=== PATIENT | male | born 1935 | race Caucasian/White ===

== ENCOUNTER → 2017-01-03 | Outpatient (CLI) | payer OTHER ==
--- NOTE | ~2017-01-03 | 2DMMODE ---
[facility] [address] [place] [address] 2 D/M-MODE ECHOCARDIOGRAM Name: LEANNE JOHNSON Room #: [facility]#: [id number] Admission: 01/03/17 Attend Phys: Ted Luis, Discharge: Date of : 35 Date of Service: 01/03/17 1026 Report #: [id number] THIS REPORT FOR: //name// APPROVED REPORT Study performed: 01/03/2017 09:37:51 EXAM: Comprehensive 2D, Doppler, and color-flow Echocardiogram Patient Location: Out-Patient Blood Pressure: 150/72 mmHg HR: 50 bpm Other Information Study Quality: Good Indications COPD Diabetes Hypertension/HDD 2D Dimensions RVDd: 41.11 mm LVEF(%): 55.18 (>50%) IVSd: 9.64 (7-11mm) LVOT Diam: 22.89 (18-24mm) LVDd: 56.95 mm PWd: 10.17 (7-11mm) Ascending Aorta: 33.90 mm LVDs: 40.38 (25-40mm) IVC: 22.00 mm Aortic Root: 33.46 mm Hewitt's LVEF: 55.18 % Volumes Left Atrial Volume (Systole) Single Plane 4CH: 51.42 mL Single Plane 2CH: 47.68 mL LA ESV Index: 30.00 mL/m2 Aortic Valve AoV Peak Bertrand.: 1.18 m/s AO Peak Gr.: 5.58 mmHg LV Max P.10 mmHg LV Max: 0.88 m/s Mitral Valve MV PHT: 37.68 ms MV E Max Bertrand.: 0.94 m/s E/A Ratio: 1.2 [facility] [address] [place] [address] 2 D/M-MODE ECHOCARDIOGRAM Name: LEANNE JOHNSON Room #: [facility]#: [id number] Admission: 01/03/17 Attend Phys: Ted Luis, Discharge: Date of : 35 Date of Service: 01/03/17 1026 Report #: [id number] MV A Bertrand.: 0.79 m/s MV Decel. Time: 129.93 ms Pulmonary Valve PV Peak Bertrand.: 1.01 m/s PV Peak Gr.: 4.12 mmHg Tricuspid Valve TR Peak Bertrand.: 2.80 m/s RAP Estimate: 10.00 mmHg TR Peak Gr.: 31.34 mmHg Left Ventricle Left ventricle is borderline dilated. There is normal LV segmental wall motion. There is normal left ventricular wall thickness. The left ventricular systolic function is normal. The left ventricular ejection fraction is within the normal range. LVEF is 50-55%. The left ventricular diastolic function is normal. Right Ventricle Right ventricle is borderline dilated. The right ventricular systolic function is normal. Atria The left atrium size is normal. Right atrium is borderline dilated. Aortic Valve The aortic valve is normal in structure. No aortic regurgitation is present. There is no aortic valvular stenosis. Mitral Valve The mitral valve is normal in structure. Mild mitral regurgitation. Tricuspid Valve The tricuspid valve is normal in structure. There is trace tricuspid regurgitation. The right atrial pressure is estimated at 10 mmHg. There is mild pulmonary hypertension. The estimated PAP was 41 mmHg. Pulmonic Valve The pulmonary valve is normal in structure. Trace pulmonic regurgitation. Great Vessels The aortic root is normal in size. IVC is normal in size and collapses <50% with inspiration. [facility] [address] [place] [address] 2 D/M-MODE ECHOCARDIOGRAM Name: LEANNE JOHNSON Room #: [facility]#: [id number] Admission: 01/03/17 Attend Phys: Ted Luis, Discharge: Date of : 35 Date of Service: 01/03/17 1026 Report #: [id number] Pericardium There is no pericardial effusion. <Conclusion> Left ventricle is borderline dilated. LVEF is 50-55%. Right ventricle is borderline dilated. Right atrium is borderline dilated. There is trace tricuspid regurgitation. The right atrial pressure is estimated at 10 mmHg. There is mild pulmonary hypertension. The estimated PAP was 41 mmHg. Trace pulmonic regurgitation. <ELECTRONICALLY SIGNED> By: Armin Robin MD 01/03/171025 1026 102 Armin Robin MD /INF
[2017-01-03 08:19] LABS: CALCIUM 9.1 mg/dL (8.5-10.1); CREATININE 2.3 mg/dL (0.7-1.3); POTASSIUM 4.5 mmol/L (3.5-5.1)
== END ==
LOC: CV 07:49 → LAB 14:56
PROVIDERS: Internal Medicine Cardiovascular Disease
DX: I71.4 Abdominal aortic aneurysm, without rupture (principal); K80.20 Calculus of gallbladder without cholecystitis without obstruction; M48.54XA Collapsed vertebra, not elsewhere classified, thoracic region, initial encounter for fracture

== ENCOUNTER → 2018-07-02 | Outpatient (CLI) | payer OTHER ==
--- NOTE | ~2018-07-02 | 2DMMODE ---
[facility] [place] [place] [address] 2 D/M-MODE ECHOCARDIOGRAM Name: LEANNE JOHNSON Room #: [facility]#: [id number] Admission: 07/02/18 Attend Phys: Ted Luis, Discharge: Date of : 35 Date of Service: 07/02/18 1255 Report #: [id number] THIS REPORT FOR: //name// APPROVED REPORT Study performed: 07/02/2018 11:04:22 EXAM: Comprehensive 2D, Doppler, and color-flow Echocardiogram Status: routine BSA: 1.90 HR: 46 bpm BP: 134/55 mmHg Rhythm: Bradycardia Other Information Study Quality: Good Indications Syncope, Chest pressure. Hx: HTN, DM 2D Dimensions RVDd: 38.92 mm IVSd: 10.92 (7-11mm) LVOT Diam: 21.33 (18-24mm) LVDd: 51.39 mm PWd: 9.81 (7-11mm) Ascending Ao: 31.93 (22-36mm) Aortic Root: 33.98 mm Volumes Left Atrial Volume (Systole) Single Plane 4CH: 41.27 mL Single Plane 2CH: 58.42 mL LA ESV Index: 28.00 mL/m2 Aortic Valve AoV Peak Bertrand.: 1.25 m/s AO Peak Gr.: 6.23 mmHg LVOT Max P.44 mmHg LVOT Max V: 0.93 m/s HEIDY Vmax: 2.65 cm2 Mitral Valve E/A Ratio: 1.2 MV Decel. Time: 195.91 ms MV E Max Bertrand.: 0.84 m/s MV A Bertrand.: 0.72 m/s MV PHT: 56.81 ms [facility] [address] [place] [address] 2 D/M-MODE ECHOCARDIOGRAM Name: LEANNE JOHNSON Room #: [facility]#: [id number] Admission: 07/02/18 Attend Phys: Ted Luis, Discharge: Date of : 35 Date of Service: 07/02/18 1255 Report #: [id number] IVRT: 83.04 ms Pulmonary Valve PV Peak Bertrand.: 1.09 m/s PV Peak Gr.: 4.75 mmHg Pulmonary Vein P Vein S: 0.42 m/s P Vein D: 0.50 m/s P Vein S/D Ratio: 0.84 Tricuspid Valve TR Peak Bertrand.: 2.89 m/s RAP Estimate: 5.00 mmHg TR Peak Gr.: 33.46 mmHg PA Pressure: 38.00 mmHg Left Ventricle The left ventricle is normal size. There is normal LV segmental wall motion. There is normal left ventricular wall thickness. Left ventricular systolic function is normal. LVEF is 50-55%. The left ventricular diastolic function is normal. Right Ventricle The right ventricle is normal size. The right ventricular systolic function is normal. Atria The left atrium size is normal. Possible PFO with small amount of shunting by color flow mapping The right atrium size is normal. Aortic Valve The aortic valve is normal in structure. No aortic regurgitation is present. There is no aortic valvular stenosis. Mitral Valve The mitral valve is normal in structure. Mild mitral regurgitation Tricuspid Valve The tricuspid valve is normal in structure. Trace to mild tricuspid regurgitation. Estimated PAP is 35-40mmHg. Pulmonic Valve The pulmonary valve is normal in structure. Trace pulmonic regurgitation. [facility] [address] [place] [address] 2 D/M-MODE ECHOCARDIOGRAM Name: LEANNE JOHNSON [place] Room #: [facility] Teresa#: [id number] Admission: 07/02/18 Attend Phys: Ted Luis, Discharge: Date of : 35 Date of Service: 07/02/18 1255 Report #: [id number] Great Vessels The aortic root is normal in size. The ascending aorta is normal in size. IVC is normal in size and collapses >50% with inspiration. Pericardium There is no pericardial effusion. <Conclusion> Left ventricular systolic function is normal. There is normal LV segmental wall motion. LVEF is 50-55%. The aortic valve is normal in structure. No aortic regurgitation or stenosis The mitral valve is normal in structure. Mild mitral regurgitation Trace to mild tricuspid regurgitation. Estimated pulmonary artery pressure of 35-40mmHg. There is no pericardial effusion. <ELECTRONICALLY SIGNED> By: Marck Diaz MD, FACC 07/02/18 1255 1255 1255 Marck Diaz MD, FACC /INF
== END ==
LOC: CV 09:37
DX: I34.0 Nonrheumatic mitral (valve) insufficiency (principal); E11.9 Type 2 diabetes mellitus without complications; M79.601 Pain in right arm; M79.602 Pain in left arm; I10 Essential (primary) hypertension